=== PATIENT | female | born 1975 | race Asian ===

== ENCOUNTER 2018-03-10 08:13 | Emergency (ER) | payer OTHER ==
[~2018-03-10] VITALS: Ht 149.9 cm; Wt 56.4 kg
[~2018-03-10 08:13] MED LIST: HYDR25TA PO; LOSA50TA25 PO; PROP20TA18 PO
[2018-03-10 08:20] VITALS: BP 157/104
== END 2018-03-10 09:53 | disposition home or self-care (01) ==
LOC: EMS 08:14
DX: S13.4XXA Sprain of ligaments of cervical spine, initial encounter (principal); S16.1XXA Strain of muscle, fascia and tendon at neck level, initial encounter; I10 Essential (primary) hypertension; Z79.899 Other long term (current) drug therapy; V43.52XA Car driver injured in collision with other type car in traffic accident, initial encounter; Y93.89 Activity, other specified; Y92.488 Other paved roadways as the place of occurrence of the external cause; Y99.8 Other external cause status
CPT/HCPCS: 99283

== ENCOUNTER 2018-11-06 14:59 | Emergency (ER) | payer OTHER ==
[~2018-11-06] VITALS: Ht 149.9 cm; Wt 61.4 kg
[~2018-11-06 14:59] MED LIST changes: -LOSA50TA25 PO; +LOSA50TA64 PO
[2018-11-06 17:21] LABS: BASOPHILS % (AUTO) 0.5 % (0.0-2.0); EOSINOPHILS % (AUTO) 0.4 % (1.0-6.0); HEMATOCRIT 42.8 % (36-46); HEMOGLOBIN 14.1 g/dL (12.0-16.0); LYMPHOCYTES # (AUTO) 2.4 K/uL (1.0-4.8); LYMPHOCYTES % (AUTO) 22.2 % (22.0-44.0); MEAN CORPUSCULAR HEMOGLOBIN 27.6 pg (26.0-34.0); MEAN CORPUSCULAR HGB CONC 32.9 G/dL (31.0-37.0); MEAN CORPUSCULAR VOLUME 84 fL (80-100); MONOCYTES # (AUTO) 0.7 K/uL (0.1-1.0); MONOCYTES % (AUTO) 6.5 % (2.0-9.0); NEUTROPHILS # (AUTO) 7.7 K/uL (1.8-7.7); NEUTROPHILS % (AUTO) 70.4 % (40.0-70.0); PLATELET COUNT (AUTO) 487 K/uL (150-450); RED CELL DISTRIBUTION WIDTH 13.9 % (11.5-14.5)
[2018-11-06 17:40] LABS: ANION GAP 10 mmol/L (8-16); CALCIUM, TOTAL 9.5 mg/dL (8.8-10.5); CARBON DIOXIDE 28 mmol/L (22-29); CHLORIDE 101 mmol/L (98-107); CREATININE 0.72 mg/dL (0.60-1.30); GLOMERULAR FILTR. RATE CALC > 60 mL/min (>60); GLUCOSE,RANDOM 101 mg/dL (70-110); POTASSIUM 3.6 mmol/L (3.5-5.1); SODIUM SERUM 139 mmol/L (136-145); UREA NITROGEN, BLOOD 11 mg/dL (7-18)
[2018-11-06 17:50] LABS: ALANINE AMINOTRANSFERASE 29 U/L (12-78); ALKALINE PHOSPHATASE 97 U/L (46-116); ASPARTATE AMINOTRANSFERASE 18 U/L (15-37); BILIRUBIN,TOTAL 0.2 mg/dL (0.1-1.0); THYROID STIMULATING HORMONE 1.61 uIU/mL (0.36-3.74); TOTAL PROTEIN, SERUM 9.2 g/dL (6.4-8.2)
[2018-11-06 18:57] LABS: APPEARANCE,URINE CLOUDY (CLEAR); BILIRUBIN,URINE NEGATIVE (NEGATIVE); GLUCOSE, URINE (UA) NEGATIVE (NEGATIVE); KETONES,URINE NEGATIVE (NEGATIVE); LEUKOCYTE ESTERASE ,URINE LARGE (NEGATIVE); NITRATE,URINE NEGATIVE (NEGATIVE); OCCULT BLOOD,URINE TRACE (NEGATIVE); PROTEIN,URINE POS 1+ (NEGATIVE); UROBILINOGEN,URINE 0.2 mg/dL (<=1.0)
[2018-11-06 19:15] LABS: RBC,URINE 0-2 /HPF (0-2); WBC,URINE 51-100 /HPF (0-5)
[2018-11-06 19:16] LABS: BACTERIA,URINE Moderate /HPF (None Seen); SQUAMOUS EPITHELIAL CELL,UR Moderate /LPF (None Seen)
[2018-11-06 19:26] VITALS: BP 153/111
== END 2018-11-06 20:06 | disposition home or self-care (01) ==
LOC: EMS 15:00
DX: R00.2 Palpitations (principal); N39.0 Urinary tract infection, site not specified; R07.9 Chest pain, unspecified; I10 Essential (primary) hypertension
CPT/HCPCS: 84443; 87086; 93005

== ENCOUNTER 2019-06-07 16:34 | Emergency (ER) | payer OTHER ==
[~2019-06-07] VITALS: Ht 149.9 cm; Wt 65.9 kg
[~2019-06-07 16:34] MED LIST changes: -HYDR25TA PO; -PROP20TA18 PO
[2019-06-07] MEDS ORDERED: METO25 PO (16:48)
[2019-06-07] MEDS ORDERED: ONDANSETRON HCL 4 MG TABLET PO ONE (19:15)
[2019-06-07] MEDS ORDERED: IBUPROFEN 800 MG TABLET PO ONE (19:15)
[2019-06-07 20:33] VITALS: BP 149/93
== END 2019-06-07 20:41 | disposition home or self-care (01) ==
LOC: EMS 16:35
DX: J11.1 Influenza due to unidentified influenza virus with other respiratory manifestations (principal); I10 Essential (primary) hypertension; Z79.899 Other long term (current) drug therapy
CPT/HCPCS: 71046; 81002; 99283; Q0162

== ENCOUNTER 2020-12-22 00:48 | Emergency (ER) | payer OTHER ==
[~2020-12-22] VITALS: Ht 149.9 cm; Wt 63.6 kg
[~2020-12-22 00:48] MED LIST changes: +LOSA50TA37 PO; -LOSA50TA64 PO; +METO25 PO
[2020-12-22] MEDS ORDERED: SODIUM CHLORIDE 0.9% 1,000 ML IV ONE (02:15)
[2020-12-22] MEDS ORDERED: ACETAMINOPHEN 500 MG TABLET PO ONE (02:15)
[2020-12-22] MEDS ORDERED: METOCLOPRAMIDE HCL 5 MG/ML 2 ML VIAL IVP ONE (02:15)
[2020-12-22] MEDS ORDERED: DiphenhydrAMINE HCL 50 MG/ML VIAL IVP ONE (02:15)
[2020-12-22 02:41] LABS: BASOPHILS % (AUTO) 0.3 % (0.0-2.0); EOSINOPHILS % (AUTO) 0.3 % (1.0-6.0); HEMOGLOBIN 12.8 g/dL (12.0-16.0); LYMPHOCYTES # (AUTO) 1.9 K/uL (1.0-4.8); MEAN CORPUSCULAR HEMOGLOBIN 27.4 pg (26.0-34.0); MEAN CORPUSCULAR VOLUME 86 fL (80-100); MONOCYTES # (AUTO) 0.6 K/uL (0.1-1.0); MONOCYTES % (AUTO) 6.6 % (2.0-9.0); NEUTROPHILS # (AUTO) 6.9 K/uL (1.8-7.7); NEUTROPHILS % (AUTO) 72.8 % (40.0-70.0); PLATELET COUNT (AUTO) 306 K/uL (150-450); RED BLOOD CELL COUNT(AUTO) 4.68 MIL/uL (4.00-5.20); RED CELL DISTRIBUTION WIDTH 14.7 % (11.5-14.5)
[2020-12-22 02:49] LABS: ANION GAP 12 mmol/L (8-16); CALCIUM, TOTAL 9.7 mg/dL (8.8-10.5); CARBON DIOXIDE 24 mmol/L (22-29); CHLORIDE 103 mmol/L (98-107); CREATININE 0.64 mg/dL (0.60-1.30); GLOMERULAR FILTR. RATE CALC > 60 mL/min (>60); GLUCOSE,RANDOM 108 mg/dL (70-110); SODIUM SERUM 139 mmol/L (136-145); UREA NITROGEN, BLOOD 17 mg/dL (7-18)
[2020-12-22 02:55] LABS: ALANINE AMINOTRANSFERASE 23 U/L (12-78); ALKALINE PHOSPHATASE 68 U/L (46-116); ASPARTATE AMINOTRANSFERASE 14 U/L (15-37); BILIRUBIN,TOTAL 0.5 mg/dL (0.1-1.0); TOTAL PROTEIN, SERUM 7.9 g/dL (6.4-8.2)
[2020-12-22 05:15] VITALS: BP 166/103
== END 2020-12-22 06:00 | disposition home or self-care (01) ==
LOC: EMS 00:49
DX: I10 Essential (primary) hypertension (principal); R51.9 Headache, unspecified; Z79.899 Other long term (current) drug therapy
CPT/HCPCS: 70450; 80053; 84484; 85025; 93005; 96361; 96374; 96375; 99285; J1200; J2765; J7030

== ENCOUNTER 2021-02-25 17:51 | Emergency (ER) | payer OTHER ==
[~2021-02-25] VITALS: Ht 149.9 cm; Wt 63.6 kg
[2021-02-25 19:25] LABS: APPEARANCE,URINE CLEAR (CLEAR); BILIRUBIN,URINE NEGATIVE (NEGATIVE); GLUCOSE, URINE (UA) NEGATIVE (NEGATIVE); KETONES,URINE NEGATIVE (NEGATIVE); LEUKOCYTE ESTERASE ,URINE SMALL (NEGATIVE); NITRATE,URINE NEGATIVE (NEGATIVE); OCCULT BLOOD,URINE NEGATIVE (NEGATIVE); PROTEIN,URINE NEGATIVE (NEGATIVE); UROBILINOGEN,URINE 0.2 mg/dL (<=1.0)
[2021-02-25 19:27] LABS: BASOPHILS % (AUTO) 0.4 % (0.0-2.0); EOSINOPHILS % (AUTO) 0.5 % (1.0-6.0); HEMATOCRIT 38.6 % (36-46); HEMOGLOBIN 12.7 g/dL (12.0-16.0); LYMPHOCYTES # (AUTO) 2.9 K/uL (1.0-4.8); LYMPHOCYTES % (AUTO) 31.4 % (22.0-44.0); MEAN CORPUSCULAR HEMOGLOBIN 28.1 pg (26.0-34.0); MEAN CORPUSCULAR HGB CONC 32.9 G/dL (31.0-37.0); MEAN CORPUSCULAR VOLUME 86 fL (80-100); MONOCYTES # (AUTO) 0.5 K/uL (0.1-1.0); MONOCYTES % (AUTO) 5.9 % (2.0-9.0); NEUTROPHILS # (AUTO) 5.7 K/uL (1.8-7.7); NEUTROPHILS % (AUTO) 61.8 % (40.0-70.0); PLATELET COUNT (AUTO) 388 K/uL (150-450); RED BLOOD CELL COUNT(AUTO) 4.51 MIL/uL (4.00-5.20); RED CELL DISTRIBUTION WIDTH 14.5 % (11.5-14.5)
[2021-02-25 19:41] LABS: ANION GAP 12 mmol/L (8-16); CALCIUM, TOTAL 8.9 mg/dL (8.8-10.5); CARBON DIOXIDE 24 mmol/L (22-29); CHLORIDE 102 mmol/L (98-107); CREATININE 0.61 mg/dL (0.60-1.30); GLOMERULAR FILTR. RATE CALC > 60 mL/min (>60); GLUCOSE,RANDOM 96 mg/dL (70-110); POTASSIUM 3.8 mmol/L (3.5-5.1); SODIUM SERUM 138 mmol/L (136-145); UREA NITROGEN, BLOOD 9 mg/dL (7-18)
[2021-02-25 20:05] LABS: ALANINE AMINOTRANSFERASE 9 U/L (12-78); ALBUMIN 4.1 g/dL (3.4-5.0); ALKALINE PHOSPHATASE 68 U/L (46-116); ASPARTATE AMINOTRANSFERASE 19 U/L (15-37); BILIRUBIN,TOTAL 0.4 mg/dL (0.1-1.0); HCG,QUANTITATIVE < 1 mIU/mL (0-6); TOTAL PROTEIN, SERUM 8.1 g/dL (6.4-8.2)
[2021-02-25 20:07] LABS: SQUAMOUS EPITHELIAL CELL,UR Few /LPF (None Seen)
[2021-02-25 20:08] LABS: BACTERIA,URINE Few /HPF (None Seen)
[2021-02-25 20:09] LABS: RBC,URINE None Seen /HPF (0-2)
[2021-02-25] MEDS ORDERED: LIDOCAINE 5% TRANSDERMAL PATCH TD ONE (20:30)
[2021-02-25 21:06] VITALS: BP 135/74
== END 2021-02-25 21:44 | disposition home or self-care (01) ==
LOC: EMS 17:51
DX: M54.2 Cervicalgia (principal); I10 Essential (primary) hypertension; Z79.899 Other long term (current) drug therapy
CPT/HCPCS: 80053; 81001; 84484; 84702; 85025; 87077; 87086; 87186; 93005; 99284

== ENCOUNTER → 2021-08-24 | Emergency (ER) | payer OTHER ==
[~2021-08-24] VITALS: Ht 152.4 cm; Wt 61.4 kg
[~2021-08-24] MED LIST changes: +0.9% SODIUM CHLORIDE 10 ML SYRINGE IVP PRN; +KETOROLAC TROMETHAMINE 30 MG/ML VIAL IVP ONE; +LOSA-382 PO; -LOSA50TA37 PO; +MECL-160 PO; +SODIUM CHLORIDE 0.9% 1,000 ML IV ONE
[2021-08-24 05:37] LABS: BASOPHILS % (AUTO) 0.4 % (0.0-2.0); EOSINOPHILS % (AUTO) 0.4 % (1.0-6.0); HEMATOCRIT 39.9 % (36-46); HEMOGLOBIN 13.3 g/dL (12.0-16.0); LYMPHOCYTES % (AUTO) 22.5 % (22.0-44.0); MEAN CORPUSCULAR HGB CONC 33.3 G/dL (31.0-37.0); MEAN CORPUSCULAR VOLUME 84 fL (80-100); MONOCYTES # (AUTO) 0.5 K/uL (0.1-1.0); NEUTROPHILS # (AUTO) 6.2 K/uL (1.8-7.7); NEUTROPHILS % (AUTO) 70.7 % (40.0-70.0); PLATELET COUNT (AUTO) 309 K/uL (150-450); RED BLOOD CELL COUNT(AUTO) 4.74 MIL/uL (4.00-5.20)
[2021-08-24 05:50] LABS: ANION GAP 11 mmol/L (8-16); CALCIUM, TOTAL 9.1 mg/dL (8.8-10.5); CARBON DIOXIDE 26 mmol/L (22-29); CHLORIDE 100 mmol/L (98-107); CREATININE 0.68 mg/dL (0.60-1.30); GLOMERULAR FILTR. RATE CALC > 60 mL/min (>60); GLUCOSE,RANDOM 112 mg/dL (70-110); POTASSIUM 4.1 mmol/L (3.5-5.1); SODIUM SERUM 137 mmol/L (136-145); UREA NITROGEN, BLOOD 9 mg/dL (7-18)
[2021-08-24 05:56] LABS: ALANINE AMINOTRANSFERASE 9 U/L (12-78); ALBUMIN 3.9 g/dL (3.4-5.0); ALKALINE PHOSPHATASE 67 U/L (46-116); ASPARTATE AMINOTRANSFERASE 19 U/L (15-37); BILIRUBIN,TOTAL 0.5 mg/dL (0.1-1.0); TOTAL PROTEIN, SERUM 7.9 g/dL (6.4-8.2)
[2021-08-24 06:03] LABS: APPEARANCE,URINE CLEAR (CLEAR); BILIRUBIN,URINE NEGATIVE (NEGATIVE); GLUCOSE, URINE (UA) NEGATIVE (NEGATIVE); KETONES,URINE NEGATIVE (NEGATIVE); LEUKOCYTE ESTERASE ,URINE NEGATIVE (NEGATIVE); NITRATE,URINE NEGATIVE (NEGATIVE); OCCULT BLOOD,URINE NEGATIVE (NEGATIVE); PH,URINE 5.5 (5.0-8.0); PROTEIN,URINE NEGATIVE (NEGATIVE); SPECIFIC GRAVITIY, URINE 1.009 (1.003-1.030); UROBILINOGEN,URINE <=1.0 mg/dL (<=1.0)
[2021-08-24 06:33] VITALS: BP 114/49
== END | disposition home or self-care (01) ==
LOC: EMS 04:53
DX: R42 Dizziness and giddiness (principal); M54.2 Cervicalgia; I10 Essential (primary) hypertension; Z79.899 Other long term (current) drug therapy
CPT/HCPCS: 36415; 70450; 72050; 80053; 81003; 84703; 85025; 93005; 96361; 96374; 99285; J1885; J7030

== ENCOUNTER 2021-09-07 22:58 | Emergency (ER) | payer OTHER ==
[~2021-09-07] VITALS: Ht 152.4 cm; Wt 59.5 kg
[~2021-09-07 22:58] MED LIST changes: -0.9% SODIUM CHLORIDE 10 ML SYRINGE IVP PRN; -KETOROLAC TROMETHAMINE 30 MG/ML VIAL IVP ONE; -SODIUM CHLORIDE 0.9% 1,000 ML IV ONE
[2021-09-07] MEDS ORDERED: ACETAMINOPHEN 500 MG TABLET PO ONE (23:45)
[2021-09-07] MEDS ORDERED: MECLIZINE HCL 25 MG TABLET PO ONE (23:45)
[2021-09-08 00:15] LABS: BASOPHILS % (AUTO) 0.6 % (0.0-2.0); EOSINOPHILS % (AUTO) 0.6 % (1.0-6.0); HEMATOCRIT 40.5 % (36-46); HEMOGLOBIN 13.5 g/dL (12.0-16.0); LYMPHOCYTES # (AUTO) 2.4 K/uL (1.0-4.8); LYMPHOCYTES % (AUTO) 25.1 % (22.0-44.0); MEAN CORPUSCULAR HEMOGLOBIN 28.2 pg (26.0-34.0); MEAN CORPUSCULAR HGB CONC 33.5 G/dL (31.0-37.0); MEAN CORPUSCULAR VOLUME 84 fL (80-100); MONOCYTES # (AUTO) 0.8 K/uL (0.1-1.0); MONOCYTES % (AUTO) 8.2 % (2.0-9.0); NEUTROPHILS # (AUTO) 6.3 K/uL (1.8-7.7); NEUTROPHILS % (AUTO) 65.5 % (40.0-70.0); PLATELET COUNT (AUTO) 356 K/uL (150-450); RED BLOOD CELL COUNT(AUTO) 4.79 MIL/uL (4.00-5.20); RED CELL DISTRIBUTION WIDTH 14.9 % (11.5-14.5)
[2021-09-08 00:27] LABS: ANION GAP 10 mmol/L (8-16); CALCIUM, TOTAL 9.2 mg/dL (8.8-10.5); CARBON DIOXIDE 27 mmol/L (22-29); CHLORIDE 99 mmol/L (98-107); CREATININE 0.66 mg/dL (0.60-1.30); GLOMERULAR FILTR. RATE CALC > 60 mL/min (>60); GLUCOSE,RANDOM 100 mg/dL (70-110); POTASSIUM 3.5 mmol/L (3.5-5.1); SODIUM SERUM 136 mmol/L (136-145); UREA NITROGEN, BLOOD 12 mg/dL (7-18)
[2021-09-08 00:35] LABS: B-TYPE NATRIURETIC PEPTIDE 51 pg/mL (0-100)
[2021-09-08 00:52] LABS: ALANINE AMINOTRANSFERASE 21 U/L (12-78); ALBUMIN 3.9 g/dL (3.4-5.0); ALKALINE PHOSPHATASE 64 U/L (46-116); ASPARTATE AMINOTRANSFERASE 20 U/L (15-37); BILIRUBIN,TOTAL 0.7 mg/dL (0.1-1.0); CREATINE KINASE, TOTAL ONLY 95 U/L (26-192); PHOSPHORUS 3.3 mg/dL (2.5-4.9); TOTAL PROTEIN, SERUM 7.6 g/dL (6.4-8.2)
[2021-09-08 01:35] VITALS: BP 125/87
== END 2021-09-08 02:23 | disposition home or self-care (01) ==
LOC: EMS 22:58
DX: R42 Dizziness and giddiness (principal); R51.9 Headache, unspecified; I10 Essential (primary) hypertension
CPT/HCPCS: 70450; 80053; 82550; 83735; 83880; 84100; 84484; 85025; 93005; 99285

== ENCOUNTER 2022-02-17 22:21 | Emergency (ER) | payer MEDICAID, OTHER ==
[~2022-02-17] VITALS: Ht 149.9 cm; Wt 55.5 kg
[2022-02-18] VITALS: BP 142/88
[2022-02-18] MEDS ORDERED: LIDOCAINE 5% TRANSDERMAL PATCH TD ONE (00:30)
[2022-02-18] MEDS ORDERED: KETOROLAC TROMETHAMINE 30 MG/ML VIAL IM ONE (00:30)
== END 2022-02-18 04:21 | disposition home or self-care (01) ==
LOC: EMS 22:21
DX: M54.2 Cervicalgia (principal); I10 Essential (primary) hypertension; Z87.440 Personal history of urinary (tract) infections
CPT/HCPCS: 99283; 96372; J1885

== ENCOUNTER 2022-03-08 16:33 | Emergency (ER) | payer MEDICAID, OTHER ==
[~2022-03-08] VITALS: Ht 154.9 cm; Wt 70.5 kg
[2022-03-08] MEDS ORDERED: BUPR75TA8 PO (18:41)
[2022-03-08] MEDS ORDERED: CARB1TAB35 PO (18:41)
[2022-03-08] MEDS ORDERED: CYCL-448 PO (22:23)
[2022-03-08 22:30] VITALS: BP 132/88
== END 2022-03-08 22:35 | disposition home or self-care (01) ==
LOC: EMS 16:33
DX: G89.29 Other chronic pain (principal); M54.9 Dorsalgia, unspecified; M54.2 Cervicalgia; G44.209 Tension-type headache, unspecified, not intractable; M25.512 Pain in left shoulder; M25.511 Pain in right shoulder; F41.9 Anxiety disorder, unspecified; M62.830 Muscle spasm of back; M62.838 Other muscle spasm; I10 Essential (primary) hypertension; Z73.3 Stress, not elsewhere classified; Z87.440 Personal history of urinary (tract) infections; Z87.898 Personal history of other specified conditions; Z98.890 Other specified postprocedural states
CPT/HCPCS: 99283; Z7502

== ENCOUNTER 2022-09-27 10:46 | Emergency (ER) | payer OTHER ==
[~2022-09-27] VITALS: Ht 152.4 cm; Wt 63.0 kg
[~2022-09-27 10:46] MED LIST changes: +BUPR75TA8 PO; +CARB1TAB35 PO; +CYCL-448 PO; +VITAMIN D PO
[2022-09-27] MEDS ORDERED: PERTUSS(ACELL),DIPH,TET VAC/PF 0.5 ML SYRINGE IM. ONE (12:15)
[2022-09-27 12:27] VITALS: BP 118/67
== END 2022-09-27 12:31 | disposition home or self-care (01) ==
LOC: EMS 10:46
DX: S61.254A Open bite of right ring finger without damage to nail, initial encounter (principal); I10 Essential (primary) hypertension; Z87.440 Personal history of urinary (tract) infections; Z98.890 Other specified postprocedural states; W54.0XXA Bitten by dog, initial encounter; Y93.89 Activity, other specified; Y92.89 Other specified places as the place of occurrence of the external cause; Y99.8 Other external cause status
CPT/HCPCS: 90471; 90715; 99283

== ENCOUNTER 2022-11-12 16:47 | Emergency (ER) | payer OTHER ==
[~2022-11-12] VITALS: Ht 152.4 cm; Wt 65.9 kg
[~2022-11-12 16:47] MED LIST changes: -BUPR75TA8 PO; -CYCL-448 PO
[2022-11-12 20:21] VITALS: BP 160/98
[2022-11-12] MEDS ORDERED: CHOL25TA4 PO (20:22)
[2022-11-12] MEDS ORDERED: BUPR75TA8 PO (20:22)
[2022-11-12] MEDS ORDERED: BACLOFEN 10 MG TABLET PO ONE (20:30)
[2022-11-12] MEDS ORDERED: ACETAMINOPHEN 500 MG TABLET PO ONE (20:30)
[2022-11-12] MEDS ORDERED: KETOROLAC TROMETHAMINE 60 MG/2 ML VIAL IM ONE (20:30)
[2022-11-12 20:38] LABS: BASOPHILS % (AUTO) 0.7 % (0.0-2.0); EOSINOPHILS % (AUTO) 1.3 % (1.0-6.0); HEMATOCRIT 39.9 % (36-46); HEMOGLOBIN 12.9 g/dL (12.0-16.0); LYMPHOCYTES # (AUTO) 3.1 K/uL (1.0-4.8); LYMPHOCYTES % (AUTO) 38.4 % (22.0-44.0); MEAN CORPUSCULAR HGB CONC 32.4 G/dL (31.0-37.0); MEAN CORPUSCULAR VOLUME 86 fL (80-100); MONOCYTES # (AUTO) 0.6 K/uL (0.1-1.0); MONOCYTES % (AUTO) 7.9 % (2.0-9.0); NEUTROPHILS # (AUTO) 4.2 K/uL (1.8-7.7); NEUTROPHILS % (AUTO) 51.7 % (40.0-70.0); PLATELET COUNT (AUTO) 328 K/uL (150-450); RED BLOOD CELL COUNT(AUTO) 4.63 MIL/uL (4.00-5.20); RED CELL DISTRIBUTION WIDTH 14.1 % (11.5-14.5)
[2022-11-12 20:50] LABS: ANION GAP 8 mmol/L (8-16); CALCIUM, TOTAL 9.4 mg/dL (8.8-10.5); CARBON DIOXIDE 28 mmol/L (22-29); CHLORIDE 101 mmol/L (98-107); CREATININE 0.58 mg/dL (0.60-1.30); GLOMERULAR FILTR. RATE CALC > 60 mL/min (>60); GLUCOSE,RANDOM 104 mg/dL (70-110); POTASSIUM 4.1 mmol/L (3.5-5.1); SODIUM SERUM 137 mmol/L (136-145)
[2022-11-12] MEDS ORDERED: MECL-134 PO (22:17)
[2022-11-12] MEDS ORDERED: IBUP-1554 PO (22:17)
== END 2022-11-12 22:22 | disposition home or self-care (01) ==
LOC: EMS 17:30
DX: G44.209 Tension-type headache, unspecified, not intractable (principal); R42 Dizziness and giddiness; I10 Essential (primary) hypertension; G20 Parkinson's disease; Z98.890 Other specified postprocedural states
CPT/HCPCS: 99285; 70450; 80048; 84484; 84703; 85025; 36415; 93005; 96372; J1885